=== PATIENT | male | born 1995 | race Hispanic/Latino ===

== ENCOUNTER 2016-09-12 09:27 | Emergency (ER) | payer SELFPAY ==
[~2016-09-12] VITALS: Ht 177.8 cm; Wt 75.8 kg
[~2016-09-12 09:27] MED LIST: KEFLEX500 MG PO; TRAMADOL HCL50 MG PO
[2016-09-12 10:01] VITALS: BP 125/87
== END 2016-09-12 12:50 | disposition left against medical advice (07) ==
LOC: EME 09:27
DX: H92.01 Otalgia, right ear (principal); J02.9 Acute pharyngitis, unspecified; R05 Cough; Z53.21 Procedure and treatment not carried out due to patient leaving prior to being seen by health care provider